=== PATIENT | male | born 1945 | race Caucasian/White ===

== ENCOUNTER 2020-05-03 17:24 | Inpatient (IN) | payer MEDICARE, OTHER ==
[~2020-05-03] VITALS: Ht 180.3 cm; Wt 96.2 kg
[~2020-05-03 17:24] MED LIST: ALBUTEROL2.5 MG/3 M INH; ASPIRIN CHEWABL81 MG PO; CETIRIZINE HCL10 MG PO; CORDARONE 200M200 MG PO; COREG6.25 MG PO; DILANTIN100 MG PO; FENOFIBRATE54 MG PO; FOLIC ACID 1 MG1 MG PO; K-DUR TAB 20 M20 MEQ PO; LASIX40 MG PO; LEVAQUIN500 MG PO; LEVOTHYROXINE50 MCG PO; MULTIVITAMINS1 EAC1 PO; OMEGA 3 1,0001 EACH PO; PRAVACHOL80 MG PO; TYLENOL W/CODEIN1 E1 PO; VASOTEC 10 MG T10 MG PO; ZONEGRAN100 MG PO
[2020-05-03 17:52] LABS: HEMOGLOBIN 13.5 gm/dl (14.0-17.5); RED BLOOD COUNT 3.76 M/UL (4.20-5.50); WHITE BLOOD COUNT 7.9 K/UL (4.5-11.0)
[2020-05-03 18:19] LABS: BUN/CREATININE RATIO 17 (0-10)
[2020-05-04 04:22] LABS: HEMOGLOBIN 12.4 gm/dl (14.0-17.5); RED BLOOD COUNT 3.6 M/UL (4.20-5.50); WHITE BLOOD COUNT 7.1 K/UL (4.5-11.0)
[2020-05-04 04:38] LABS: BUN/CREATININE RATIO 19 (0-10)
[2020-05-05 03:49] LABS: HEMOGLOBIN 11.8 gm/dl (14.0-17.5); RED BLOOD COUNT 3.49 M/UL (4.20-5.50); WHITE BLOOD COUNT 6.3 K/UL (4.5-11.0)
[2020-05-06 04:30] LABS: RED BLOOD COUNT 3.17 M/UL (4.20-5.50); WHITE BLOOD COUNT 6.7 K/UL (4.5-11.0)
[2020-05-06] MEDS ORDERED: CLOPIDOGREL75 MG PO (11:46)
[2020-05-06] MEDS ORDERED: LEVOTHYROXINE100 MCG PO (11:46)
== END 2020-05-06 14:55 | disposition home or self-care (01) | DRG 247 ==
LOC: ER1 17:24 → CDU 18:55 → PROG CARE 05-04 16:41
PROVIDERS: Physician Assistant; ADMIT Internal Medicine
PROC: 027136Z Dilation of Coronary Artery, Two Arteries with Three Drug-eluting Intraluminal Devices, Percutaneous Approach (ICD-10-PCS; principal; 2020-05-04)
PROC: 4A023N7 Measurement of Cardiac Sampling and Pressure, Left Heart, Percutaneous Approach (ICD-10-PCS; 2020-05-04)
PROC: 4A0335C Measurement of Arterial Flow, Coronary, Percutaneous Approach (ICD-10-PCS; 2020-05-04)
PROC: B2181ZZ Fluoroscopy of Left Internal Mammary Bypass Graft using Low Osmolar Contrast (ICD-10-PCS; 2020-05-04)
PROC: B2111ZZ Fluoroscopy of Multiple Coronary Arteries using Low Osmolar Contrast (ICD-10-PCS; 2020-05-04)
PROC: B24BZZZ Ultrasonography of Heart with Aorta (ICD-10-PCS; 2020-05-04)
DX: I47.2 Ventricular tachycardia (principal); I50.22 Chronic systolic (congestive) heart failure; I25.110 Atherosclerotic heart disease of native coronary artery with unstable angina pectoris; T82.858A Stenosis of other vascular prosthetic devices, implants and grafts, initial encounter; Z20.822 Contact with and (suspected) exposure to COVID-19; G40.909 Epilepsy, unspecified, not intractable, without status epilepticus; R53.81 Other malaise; E03.9 Hypothyroidism, unspecified; E78.5 Hyperlipidemia, unspecified; I25.5 Ischemic cardiomyopathy; I11.0 Hypertensive heart disease with heart failure; Z79.82 Long term (current) use of aspirin; Z79.890 Hormone replacement therapy; Z88.8 Allergy status to other drugs, medicaments and biological substances; Z95.1 Presence of aortocoronary bypass graft; Z95.810 Presence of automatic (implantable) cardiac defibrillator; Z79.899 Other long term (current) drug therapy; Z82.49 Family history of ischemic heart disease and other diseases of the circulatory system; Z83.3 Family history of diabetes mellitus
CPT/HCPCS: ECHO; 36415; 71045; 80053; 80061; 80185; 82550; 82553; 82962; 83735; 83874; 83880; 84132; 84439; 84443; 84481; 84484; 85025; 85027; 85347; 85610; 85730; 93005; 93306; 96374; 99152; 99153; 99285; C1725; C1760; C1769; C1874; C1887; C9600; C9601; G0008; G0378; J0461; J1644; J1650; J2250; J7030; J7040; Q9967; U0002